=== PATIENT | male | born 1960 | race Caucasian/White ===

== ENCOUNTER 2025-09-02 20:20 | Emergency (ER) | payer OTHER, SELFPAY ==
[2025-09-02 20:21] VITALS: BP 179/92
[2025-09-02 20:35] VITALS: BP 158/79
[2025-09-02 20:36] VITALS: BMI 38.6
[2025-09-02 21:00] VITALS: BP 125/64
--- NOTE | 2025-09-02 21:16 | ED.GENMED ---
History of Present Illness
General
Chief Complaint: Allergic Reaction
Source: patient and spouse
Exam Limitations: none
Time Seen by Provider: 09/02/25 20:49
Nursing documentation reviewed up to this point in time: agreed with
History of Present Illness
History of Present Illness:
Patient to the emergency department with suspected allergic reaction. He states he was in the movie theater watching a movie. He reports eating nuts. States shortly after he developed swelling to his face specifically his eyes and lips. He also
reports tightness in his throat. He took Benadryl on arrival home and reports some improvement initially but then symptoms returned. He was brought to the emergency department by his for evaluation. He has a known history to iodine and has
had a similar reaction in the past after eating crab. No known nut allergy. He denies any difficulty breathing but reports tightness in his throat.
Past History
Past History
ED Past Medical History: HTN
Review of Systems
Review of Systems
Allergies reviewed?: Yes
All Other Systems: ROS reviewed and negative except as documented in HPI and ROS
Constitutional: Reports no symptoms
EENT: Reports no symptoms
Respiratory: Reports no symptoms
Cardiac: Reports no symptoms
ABD/GI: Reports nausea
Musculoskeletal: Reports no symptoms
Skin: Reports other (Swelling to mouth and eyes)
Neurological: Reports no symptoms
Psychiatric: Reports no symptoms
Phy Exam
General Physical Exam
General Presentation: well appearing and mild distress
General age: appears stated age
General Skin: warm and dry
General Habitus: normal
General Mental: alert
ENT Exam
ENT Exam: EOMI, pharynx normal, swallowing well and other (Sensation of tightness in throat)
Eye Exam
Eye Exam: PERRL, EOMI, conjunctiva normal and other (Periorbital swelling)
Cardiovascular Exam
Cardiovascular Exam: regular rate/rhythm
Pulmonary Exam
Pulmonary Exam: lungs clear and no respiratory distress
Gastrointestinal Exam
Gastrointestinal Exam: normal bowel sounds, non tender and soft
Neurological Exam
Neurological Exam: alert and oriented x3
Skin Exam
Skin Exam: warm/dry and other (Periorbital swelling, swelling to lips)
Psychiatric Exam
Psychiatric Exam: normal mood/affect
Course
Orders/Labs/Results
Orders:
Orders
09/02/25 20:56
0.9% Sodium Chloride 1000 ml [Nss] 1,000 ml IV BOLUS
Dexamethasone Sod Phosphate [Decadron] 10 mg IV NOW STA
Famotidine [Pepcid] 20 mg IV NOW STA
Vital Signs
Initial and Last Documented VS:
Initial Vital Signs
Temp Pulse Resp BP Pulse Ox
97.8 F 72 20 179/92 97
09/02/25 20:21 09/02/25 20:21 09/02/25 20:21 09/02/25 20:21 09/02/25 20:21
Last Documented Vital Signs
Temp Pulse Resp BP Pulse Ox
97.8 F 55 20 135/76 98
09/02/25 20:21 09/02/25 22:00 09/02/25 20:21 09/02/25 22:00 09/02/25 21:45
*Pulse Oximetry
SaO2: 97
Oxygen Mode of Delivery: Room air
Patient hypoxic: no
*Critical Care Note
Total Time (30-74mins, 75-104mins- exclusive of procedures): Not Applicable
Update Note
Update Note:
Patient to emergency department with complaint of facial swelling after eating peanuts while at the movie theater tonight. He took Benadryl when he arrived home and reported some improvement initially but then swelling returned. On arrival to ED
he is awake alert oriented talking in full sentences. Swelling noted to bilateral periorbital region along with swelling to lips. Uvula remains midline no swelling noted. He had no difficulty swallowing while in ED. Lungs remain clear, no
wheezing or stridor. He was given dose of IV Decadron and Pepcid while in ED and facial swelling, throat symptoms have resolved. Will discharge home and he will follow-up with his family doctor. Discussed outpatient allergy testing patient states
he will contact [facility] to schedule an appointment. Will prescribe prednisone taper but he will continue Benadryl p.o. as needed. he was given instructions on signs and symptoms to return to the emergency department and he is agreeable to this
plan
ED Attending Note
-
Portions of this chart may have been created with voice recognition software.� Occasional wrong word or��sound alike� substitutions may have occurred due to the inherent limitations of voice recognition software.
Discharge Plan
Departure
Patient Disposition: Home (Routine Discharge)
Date of Disposition: 09/02/25
Time of Disposition: 22:07
Patient with high blood pressure during this ER visit?: No
Condition: Good
Covid-19: Not Applicable
Discharge Problem:
Allergic reaction
Instructions: Food allergy, How to use an autoinjector
Prescriptions:
New
prednisone 10 mg Tablet
See Rx Instructions .ROUTE .COMPLEX Qty: 30 0RF
Rx Instructions:
Take By Mouth:
40 mg daily x3 days, 30 mg daily x3 days,
20 mg daily x3 days, 10 mg daily x3 days.
epinephrine [EpiPen] 0.3 mg/0.3 mL auto-injector
0.3 mg IM ONCE Qty: 1 1RF
Referrals:
Ciro Bolden MD [Family Provider, Family Practice] - Tomorrow
Activity Restrictions/Additional Instructions:
Return to the emergency department immediately for any difficulty breathing or swallowing. You may continue to use Benadryl 25 mg every 4-6 hours as needed for itching or swelling. A prescription for epinephrine was provided for you this
medication is to be used if you were to develop any difficulty breathing or swallowing. After use of the EpiPen you would need to return to the emergency department immediately
Interventions
Interventions:
*Risk Screen - Suicide Last Done: 09/02/25 20:21
*General Assessment Last Done: 09/02/25 20:37
*Neglect/Abuse Screening Last Done: 09/02/25 20:21
*ED- Fall Risk Assessment Last Done: 09/02/25 20:37
*ED COVID-19 Vaccine History Last Done: 09/02/25 20:37
*ED Influenza Vaccine History Last Done: 09/02/25 20:37
ED- Cardiac Assessment Last Done: 09/02/25 20:37
ED- Pulmonary Assessment Last Done: 09/02/25 20:37
ED-Skin Assessment Last Done: 09/02/25 20:37
Discharge Date and Time
Print Language: [id number]
[2025-09-02] MEDS: PEPCID 20 MG IV (21:18)
[2025-09-02] MEDS: DECADRON 10 MG IV (21:18)
[2025-09-02] MEDS: NSS 1000 IV (21:19)
[2025-09-02 22:00] VITALS: BP 135/76
== END 2025-09-02 22:40 | disposition home or self-care (01) ==
LOC: EMR 20:20
PROVIDERS: EMERGENCY PHYSICIAN Emergency Medicine; FAMILY PHYSICIAN Family Medicine
DX: T78.40XA Allergy, unspecified, initial encounter (principal); Y92.9 Unspecified place or not applicable; I10 Essential (primary) hypertension
CPT/HCPCS: 99282; 96374; 96375; 96361